=== PATIENT | male | born 1970 | race Caucasian/White ===

== ENCOUNTER 2023-02-12 07:53 | Outpatient (CLI) | payer BC, SELFPAY | END 2023-02-12 07:54 | disposition home or self-care (01) | PROVIDERS: PCP Family Medicine; Visit Provider Family Medicine | DX: Z00.00 Encounter for general adult medical examination without abnormal findings (principal); E78.1 Pure hyperglyceridemia; I10 Essential (primary) hypertension; R79.89 Other specified abnormal findings of blood chemistry; R94.5 Abnormal results of liver function studies; Z12.5 Encounter for screening for malignant neoplasm of prostate | CPT/HCPCS: 80053; 80061; 84153; 84443 ==

== ENCOUNTER 2023-08-03 11:59 | Outpatient (CLI) | payer OTHER, SELFPAY ==
--- OUTSIDE RECORDS SUMMARY | 2023-08-03 12:03 | XMS_ITS | Clinical Summary ---
Author Name Unknown Organization [facility] Address [place], [place] [address] Care Team Providers Care Ppa Teacher Name Role Phone Nam Siddiqui MD Primary Care Provider [phone] Allergies No known active allergies Medications Medication Sig Dispensed Refills Start Date End Date Status atenolol (TENORMIN) 100 mg tabletIndications:Unsp ecified essential hypertension Take 1 tablet by mouth once daily. 90 tablet 3 05/06/2010 Active lisinopril (PRINIVIL; ZESTRIL) 5 mg tabletIndications:Unsp ecified essential hypertension Take 1 tablet by mouth once daily. 90 tablet 3 05/06/2010 Active Active Problems Problem Noted Date Diagnosed Date Unspecified essential hypertension 03/30/2007 Immunizations Name Administration Dates Next Due Td (Age >=7 Years) 04/20/1997 Tdap 06/19/2008 Family History Medical History Relation Name Comments Hypertension Brother 6 Hypertension Brother 7 Hypertension Mother Stroke Paternal Grandmother Hypertension Sister 5 Relation Name Status Comments Brother 1 Alive Brother 2 Alive Brother 3 Alive Brother 4 Alive Brother 5 Alive Brother 6 Brother 7 Daughter Alive Father (Age 52) stroke; sm oker Mother Alive Paternal Grandmother Sister 1 Alive Sister 2 Alive Sister 3 Alive Sister 4 Alive Sister 5 Son Alive Social History Tobacco Use Types Packs/Day Years Used Date Smoking Tobacco: Never Smokeless Tobacco: Never Tobacco Cessation:Counseling Given: Yes Alcohol Use Standard Drinks/Week Comments Yes 0 (1 standard drink = 0.6 oz pure alcohol) 0-1 times a week, 4-5 drinks at a time Social Connections Answer Date Recorded Frequency of Communication with Friends and Fami ly Not on file 04/20/2021 Financial Resource Strain Answer Date R ecorded Difficulty of Paying Living Expenses Not on file 04/20/2021 Difficulty of Paying Living Expenses Not on file 04/20/2021 Sex and Gender Information Value Date Recorded Sex Assigned at Not on file Gender Identity Not on file Sexual Orientation Not on file Obstetrics History Last Filed Vital Signs Vital Sign Reading Time Taken Comments Blood Pressure 141/89 04/02/2021 8:44 AM MILL PLATFORM SUPERVISOR Pulse 77 04/02/2021 8:44 AM MILL PLATFORM SUPERVISOR Temperature 36.8 ??C (98.2 ??F) 04/02/2021 8:44 AM CS T Respiratory Rate - - Oxygen Saturation 95% 04/02/2021 8:44 AM MILL PLATFORM SUPERVISOR Inhaled Oxygen Concentration - - Weight 114.8 kg (253 lb) 04/02/2021 8:44 AM MILL PLATFORM SUPERVISOR Height 184 cm (6' 0.44) 09/13/2009 11:00 AM CDT Body Mass Index - - Plan of Treatment Health Maintenance Due Date Last Done Comments Depression screening for age 12+ 1984 HIV for age 15-65 01/01/1988 BMI (ht and wt on same day) for age 18+ 1990 Hepatitis C screening for ag e 18-79 1990 Colonoscopy through age 75 2017 Lipids for age 45-75 2017 06/19/2008, 01/28/2006 Tetanus booster 06/19/2018 06/19/2008, 04/20/1997 COVID-19 vaccine series ( season) 2022 08/14/2020, 07/24/2020 Zoster (shingles) series for age 50+ (1 of 2) 2022 Influenza for age 50-64 12/20/2023 Tdap Completed 06/19/2008 Pneumococcal series for age 6-64 Aged Out No longer eligible b ased on patient's age to complete this topic Procedures Procedure Name Priority Date/Time Associated Diagnosis Comments LIPID PANEL Routine 06/19/2008 8:53 AM MILL PLATFORM SUPERVISOR Lipid Screening from Last 3 Months or Most Recently Relevant to Health Maintenance Results * (ABNORMAL) LIPID PANEL (06/19/2008 8:53 AM MILL PLATFORM SUPERVISOR) [facility] Signature CHOLESTEROL,TOTAL 200(H) 110 - 199 mg/dL [facility] TRIGLYCERIDES 122 <150 mg/dL [facility] HDL CHOLESTEROL 49 >40 mg/dL [facility] CHOL/HDL RATIO 4.08 <4.51 [facility] LDL CHOLESTEROL 127 <131 mg/dL [facility] PATIENT STATUS Fasting [facility] Blood specimen (specimen) BLOOD SPECIMEN / Unknown 06/19/2008 8:53 AM MILL PLATFORM SUPERVISOR 06/19/2008 8:49 AM MILL PLATFORM SUPERVISOR Nam Siddiqui MD CHEMISTRY [facility] [address] [place] [address] from Last 3 Months or Most Recently Relevant to Health Maintenance Care Teams Ppa Teacher Relationship Specialty Start Date End Date Nam Siddiqui MD [address] [place] [address] [address] [place] [address] PCP - General 06/13/08
== END 2023-08-03 12:00 | disposition home or self-care (01) ==
PROVIDERS: PCP Family Medicine; Visit Provider Family Medicine
DX: R00.2 Palpitations (principal); I45.9 Conduction disorder, unspecified
CPT/HCPCS: 80048; 84443

== ENCOUNTER 2024-03-04 07:49 | Outpatient (CLI) | payer OTHER, SELFPAY ==
--- OUTSIDE RECORDS SUMMARY | 2024-03-04 07:52 | XMS_ITS | Clinical Summary ---
Author Organization [employer] [facility] Address [place], [place] [address] Care Team Providers Care Clinical Dietetic Technician Name Role Phone Nam Siddiqui MD Primary Care Provider [phone] Allergies No known active allergies Medications Medication Sig Dispensed Refills Start Date End Date Status atenolol (TENORMIN) 100 mg tabletIndications:Unsp ecified essential hypertension Take 1 tablet by mouth once daily. 90 tablet 3 05/06/2010 Active lisinopril (PRINIVIL; ZESTRIL) 5 mg tabletIndications:Unsp ecified essential hypertension Take 1 tablet by mouth once daily. 90 tablet 3 05/06/2010 Active lisinopril-hydrochloro thiazide 20-12.5 mg tablet (PRINZIDE)Indications: HTN (hypertension) Take 1 Tablet by mouth once daily. 90 Tablet 4 01/07/2024 Active Active Problems Problem Noted Date Diagnosed Date Unspecified essential hypertension 03/30/2007 Encounters Date Type Department Care Team Description 01/07/2024 2:00 PM CDT Office Visit [facility] & [address] [address] Bernard Olvera MD from Last 3 Months Immunizations Name Administration Dates Next Due Td [...] Friends and Fami ly Not on file 01/07/2024 Financial Resource Strain Answer Date R ecorded [...] Comments Blood Pressure 141/89 04/02/2021 8:44 AM ELEMENTARY SCIENCE TEACHER Pulse 77 04/02/2021 8:44 AM ELEMENTARY SCIENCE TEACHER Temperature 36.8 ??C (98.2 ??F) 04/02/2021 8:44 AM CS T Respiratory Rate - - Oxygen Saturation 95% 04/02/2021 8:44 AM ELEMENTARY SCIENCE TEACHER Inhaled Oxygen Concentration - - Weight 114.8 kg (253 lb) 04/02/2021 8:44 AM ELEMENTARY SCIENCE TEACHER Height 184 cm (6' 0.44) 09/13/2009 11:00 AM CDT Body Mass Index - - Plan of Treatment Upcoming Encounters Date Type Department Care Team (Late st Contact Info) Description 03/04/2024 8:00 AM ELEMENTARY SCIENCE TEACHER Ancillary Procedure [facility] [address] [place] [address] Health Maintenance Due Date Last Done Comments Depression screening for age 12+ 1984 HIV for age 15-65 01/01/1988 BMI (ht and wt on same day) for age 18+ 1990 Hepatitis C screening for ag e 18-79 1990 Colonoscopy through age 75 2017 Lipids for age 45-75 2017 06/19/2008, 01/28/2006 Tetanus booster 06/19/2018 06/19/2008, 04/20/1997 Zoster (shingles) series for age 50+ (1 of 2) 2022 COVID-19 vaccine series (2023- season) 2023 08/14/2020, 07/24/2020 Influenza for age 50-64 12/20/2023 Tdap Completed 06/19/2008 Pneumococcal series for age 6-64 Aged Out No longer eligible b ased on patient's age to complete this topic Procedures Procedure Name Priority Date/Time Associated Diagnosis Comments LIPID PANEL Routine 06/19/2008 8:53 AM ELEMENTARY SCIENCE TEACHER Lipid Screening from Last 3 Months or Most Recently Relevant to Health Maintenance Results * (ABNORMAL) LIPID PANEL (06/19/2008 8:53 AM ELEMENTARY SCIENCE TEACHER) CHOLESTEROL,TOTAL 200(H) 110 - 199 mg/dL [facility] TRIGLYCERIDES 122 <150 mg/dL [facility] HDL CHOLESTEROL 49 >40 mg/dL [facility] CHOL/HDL RATIO 4.08 <4.51 [facility] LDL CHOLESTEROL 127 <131 mg/dL [facility] PATIENT STATUS Fasting [facility] Blood specimen (specimen) BLOOD SPECIMEN / Unknown 06/19/2008 8:53 AM ELEMENTARY SCIENCE TEACHER 06/19/2008 8:49 AM ELEMENTARY SCIENCE TEACHER Nam Siddiqui MD CHEMISTRY [facility] [address] [place] [address] from Last 3 Months or Most Recently Relevant to Health Maintenance Care Teams Clinical Dietetic Technician Relationship Specialty Start Date End Date Nam Siddiqui MD [address] [facility] [address] [place] [address] PCP - General 06/13/08
== END 2024-03-04 07:50 | disposition home or self-care (01) ==
LOC: RAD 07:50
PROVIDERS: PCP Family Medicine; Visit Provider Internal Medicine Cardiovascular Disease
DX: R00.2 Palpitations (principal)
CPT/HCPCS: 93306

== ENCOUNTER 2024-06-03 08:32 | Outpatient (CLI) | payer OTHER, SELFPAY | END 2024-06-03 08:33 | disposition home or self-care (01) | LOC: NFLDREF 06-04 03:34 | PROVIDERS: PCP Family Medicine; Referring Provider Family Medicine; Visit Provider Family Medicine | DX: E78.1 Pure hyperglyceridemia (principal); I10 Essential (primary) hypertension | CPT/HCPCS: 80053; 80061 ==